=== PATIENT | male | born 1990 | race Caucasian/White ===

== ENCOUNTER → 2017-05-29 | Outpatient (CLI) | payer OTHER ==
--- NOTE | 2017-05-29 18:02 | MG ---
cc: TARA HICKEY MD Sex: M DATE OF STUDY: 05/29/2017 EEG. DATE OF : 1990 HISTORY: 26-year-old with history of syncopal episodes. DESCRIPTION: Reduced driving with photic stimulation, eye movement blink artifact in the beginning of the recording, posterior rhythm showing 8 Hz activity, 10-20 microvolts. Single lead EKG showing sinus rhythm. INTERPRETATION: Normal awake sleep EEG. Clinical correlation. Tara Hickey MD MG/EMILY /4:33 PM /5:53 PM
== END ==
LOC: HEEG 09:03
PROVIDERS: ATTEND Psychiatry & Neurology Neurology
DX: R55 Syncope and collapse (principal)
CPT/HCPCS: 95819